=== PATIENT | female | born 1945 | race Caucasian/White ===

== ENCOUNTER → 2016-11-08 16:51 | Outpatient (CLI) | payer MEDICARE, OTHER ==
[2016-04-10 01:46] VITALS: BMI 22.5
[~2016-11-08 16:51] MED LIST: DILAUDID2 MG PO; EFFEXOR75 MG; EFFEXOR75 MG PO; TYLENOL 325 MG325 MG PO; ZOCOR40 MG PO
== END | disposition home or self-care (01) ==
LOC: D.MAMMO 11:30
DX: Z12.31 Encounter for screening mammogram for malignant neoplasm of breast (principal)

== ENCOUNTER → 2017-11-16 13:11 | Outpatient (CLI) | payer MEDICARE, OTHER ==
[2016-04-10 01:46] VITALS: BMI 22.5
== END | disposition home or self-care (01) ==
LOC: D.MAMMO 09:00
DX: Z12.31 Encounter for screening mammogram for malignant neoplasm of breast (principal)

== ENCOUNTER → 2018-11-20 08:00 | Outpatient (CLI) | payer MEDICARE, OTHER ==
[2016-04-10 01:46] VITALS: BMI 22.5
== END | disposition home or self-care (01) ==
LOC: D.MAMMO 08:00
DX: Z12.31 Encounter for screening mammogram for malignant neoplasm of breast (principal)

== ENCOUNTER 2020-12-29 09:00 | Outpatient (CLI) | payer MEDICARE, OTHER ==
[2016-04-10 01:46] VITALS: BMI 22.5
== END 2020-12-29 23:59 | disposition home or self-care (01) ==
LOC: D.MAMMO 09:00
PROVIDERS: ATTEND Family Medicine
DX: Z12.31 Encounter for screening mammogram for malignant neoplasm of breast (principal)